=== PATIENT | female | born 1970 | race Caucasian/White ===

== ENCOUNTER 2020-06-02 10:14 | Outpatient (CLI) | payer MEDICAID ==
[~2020-06-02 10:14] MED LIST: AMIT25TA9 PO; IBUP-75 PO; METF500T PO; METO100T14 PO; OXYC-150 PO; SIMV10TA2 PO; TOP100T PO; VENL-190
== END 2020-06-02 23:59 | disposition home or self-care (01) ==
LOC: RAD 10:14
PROVIDERS: ATTEND Psychiatry & Neurology Neurology
DX: R53.1 Weakness (principal)
CPT/HCPCS: 95816